=== PATIENT | female | born 1990 | race African-American/Black ===

== ENCOUNTER 2022-08-21 18:54 | Emergency (ER) | payer OTHER ==
[2022-08-21 19:02] VITALS: RESP 18; BMI 39.6
[2022-08-21] MEDS ORDERED: morphine CARPU-JECT 4 MG/1 ML DISP.SYRIN IVPUSH ONE (19:40)
[2022-08-21] MEDS ORDERED: ONDANSETRON 4 MG/2 ML VIAL IVPUSH ONE (19:41)
[2022-08-21] MEDS ORDERED: SODIUM CHLORIDE 0.9% 500 ML INFUS.BAG IV ONE (19:41)
[2022-08-21] MEDS ORDERED: morphine SULFATE 4 MG/ML VIAL ONE (20:48)
[2022-08-21] MEDS ORDERED: ONDANSETRON 4 MG/2 ML VIAL ONE (20:48)
[2022-08-21] MEDS ORDERED: ACETAMINOPHEN INJECTION 100 ML IVPB ONE (21:03)
[2022-08-21 21:28] LABS: EPI CELLS 8 /uL (0-25.1); HYALINE CASTS 0 /uL (0-3.1); PH,URINE 5.5 (5.0-8.0); URINE APPEARANCE CLEAR; URINE BACTERIA 5906 /uL (0-1359); URINE BILIRUBIN NEGATIVE (NEGATIVE); URINE COLOR YELLOW; URINE GLUCOSE (UA) NEGATIVE (NEGATIVE); URINE KETONE NEGATIVE (NEGATIVE); URINE LEUK ESTERASE 2+ (NEGATIVE); URINE NITRITE NEGATIVE (NEGATIVE); URINE PROTEIN TRACE (NEGATIVE); URINE RBC 49 /uL (0-23.9); URINE UROBILINOGEN 0.2 mg/dL (0.2-1.0); URINE WBC 1015 /uL (0-25.8)
[2022-08-21 21:46] LABS: INR 1.01 (0.83-1.09); PROTHROMBIN TIME (PATIENT) 11.7 SEC (9.7-13.0)
[2022-08-21 21:49] LABS: ACTIVATED PTT 19.7 SECONDS (25.2-36.5)
[2022-08-21 21:55] LABS: POTASSIUM 3.8 mmol/L (3.5-5.1)
[2022-08-21 21:57] LABS: ALBUMIN 3.7 g/dl (3.4-5.0); BLOOD UREA NITROGEN 12.6 mg/dL (7-18); CALCIUM 9.2 mg/dL (8.5-10.1)
[2022-08-21 22:01] LABS: CREATININE 0.8 mg/dL (0.55-1.3)
[2022-08-21 22:03] LABS: BILIRUBIN,TOTAL 0.6 mg/dL (0.2-1); TOT PROT 7.4 g/dl (6.4-8.2)
[2022-08-21] MEDS ORDERED: CEFTRIAXONE 1,000 MG in DEXTROSE 5%-WATER - 50 ML IVPB ONE (23:10)
[2022-08-21 23:11] LABS: EOS % 0.2 % (0-4.5); HEMATOCRIT 27.9 % (32.4-45.2); HEMOGLOBIN 9.2 GM/dL (10.7-15.3); LYMPH % 9.2 % (8-40); MCH 28.5 pg (25.7-33.7); MCHC 32.9 g/dl (32.0-36.0); MEAN CELL VOLUME 86.7 fl (80-96); MEAN PLT VOLUME 8.8 fl (7.5-11.1); MONO % 6.6 % (3.8-10.2); PLATELET COUNT 155 10^3/uL (134-434); RBC 3.22 M/mm3 (3.60-5.2); RDW 15.1 % (11.6-15.6); WHITE BLOOD COUNT 10.7 K/mm3 (4.0-10.0)
[2022-08-21] MEDS ORDERED: CEFTRIAXONE 1 GM/50 ML BAG ONE (23:25)
[2022-08-21 23:43] VITALS: BP 93/47; PULSE 87; TEMP 97.9
== END 2022-08-22 00:11 | disposition home or self-care (01) ==
LOC: JER 18:54
PROC: 3E03329 Introduction of Other Anti-infective into Peripheral Vein, Percutaneous Approach (ICD-10-PCS; principal; 2022-08-21)
PROC: 3E033GC Introduction of Other Therapeutic Substance into Peripheral Vein, Percutaneous Approach (ICD-10-PCS; 2022-08-21)
PROC: 3E033GC Introduction of Other Therapeutic Substance into Peripheral Vein, Percutaneous Approach (ICD-10-PCS; 2022-08-21)
DX: R10.31 Right lower quadrant pain (principal); R50.9 Fever, unspecified; R11.0 Nausea; R42 Dizziness and giddiness; K59.00 Constipation, unspecified; R51.9 Headache, unspecified; R07.9 Chest pain, unspecified; N12 Tubulo-interstitial nephritis, not specified as acute or chronic; Z20.822 Contact with and (suspected) exposure to COVID-19
CPT/HCPCS: 36415; 74177-TC; 76830-TC; 80053; 81003; 83605; 84703; 85025; 85610; 85730; 86900; 87086; 87186; 87635; 93005; 93010; 99285-25; Q9967